=== PATIENT | female | born 1940 | race Caucasian/White ===

== ENCOUNTER 2018-11-21 08:29 | Outpatient (CLI) | payer OTHER ==
[~2018-11-21 08:29] MED LIST: ESTR0.624; ESTR0.624 PO; SYNTHROID50 MCG PO; XANAX0.25 MG PO; ZETIA10 MG PO; [UNRECOGNIZED DRUG - OTHER] PO
== END 2018-11-21 08:49 | disposition home or self-care (01) ==
LOC: NUCLEAR 08:29
DX: C18.8 Malignant neoplasm of overlapping sites of colon (principal)
CPT/HCPCS: 78816; A9552

== ENCOUNTER 2018-12-27 12:44 | Inpatient (IN) | payer OTHER ==
[~2018-12-27] VITALS: Ht 152.4 cm; Wt 81.6 kg
[2018-12-27] MEDS ORDERED: DIOVAN40 MG PO (13:15)
== END 2019-01-19 23:28 | disposition expired | DRG 314 ==
LOC: ER 12:44 → MEDJ 16:35
PROVIDERS: ADMIT Internal Medicine Geriatric Medicine
PROC: B246ZZZ Ultrasonography of Right and Left Heart (ICD-10-PCS; principal; 2018-12-27)
PROC: 3E0F7GC Introduction of Other Therapeutic Substance into Respiratory Tract, Via Natural or Artificial Opening (ICD-10-PCS; 2018-12-27)
PROC: 4A12X4Z Monitoring of Cardiac Electrical Activity, External Approach (ICD-10-PCS; 2018-12-27)
PROC: 0T9B70Z Drainage of Bladder with Drainage Device, Via Natural or Artificial Opening (ICD-10-PCS; 2018-12-27)
PROC: 0W9930Z Drainage of Right Pleural Cavity with Drainage Device, Percutaneous Approach (ICD-10-PCS; 2018-12-28)
PROC: 0DBM8ZX Excision of Descending Colon, Via Natural or Artificial Opening Endoscopic, Diagnostic (ICD-10-PCS; 2019-01-02)
PROC: BB24ZZZ Computerized Tomography (CT Scan) of Bilateral Lungs (ICD-10-PCS; 2019-01-09)
PROC: 5A09457 Assistance with Respiratory Ventilation, 24-96 Consecutive Hours, Continuous Positive Airway Pressure (ICD-10-PCS; 2019-01-10)
PROC: 4A033R1 Measurement of Arterial Saturation, Peripheral, Percutaneous Approach (ICD-10-PCS; 2019-01-17)
PROC: 8E0ZXY6 Isolation (ICD-10-PCS; 2019-01-17)
PROC: 0JPT3WZ Removal of Totally Implantable Vascular Access Device from Trunk Subcutaneous Tissue and Fascia, Percutaneous Approach (ICD-10-PCS; 2019-01-18)
DX: I30.8 Other forms of acute pericarditis (principal); I50.33 Acute on chronic diastolic (congestive) heart failure; J18.1 Lobar pneumonia, unspecified organism; J96.01 Acute respiratory failure with hypoxia; B37.7 Candidal sepsis; N17.8 Other acute kidney failure; R65.10 Systemic inflammatory response syndrome (SIRS) of non-infectious origin without acute organ dysfunction; C79.51 Secondary malignant neoplasm of bone; J98.11 Atelectasis; B37.41 Candidal cystitis and urethritis; J91.8 Pleural effusion in other conditions classified elsewhere; C18.6 Malignant neoplasm of descending colon; B49 Unspecified mycosis; E88.09 Other disorders of plasma-protein metabolism, not elsewhere classified; I11.0 Hypertensive heart disease with heart failure; I31.3 Pericardial effusion (noninflammatory); R60.1 Generalized edema; D72.828 Other elevated white blood cell count; E03.8 Other specified hypothyroidism; E66.09 Other obesity due to excess calories; R91.8 Other nonspecific abnormal finding of lung field; N39.8 Other specified disorders of urinary system; R63.0 Anorexia; Z45.2 Encounter for adjustment and management of vascular access device; F43.22 Adjustment disorder with anxiety; Z66 Do not resuscitate; Z99.81 Dependence on supplemental oxygen